=== PATIENT | male | born 1995 | race Caucasian/White ===

== ENCOUNTER 2018-11-16 13:06 | Inpatient (IN) | payer OTHER ==
[2018-11-16 13:46] LABS: Bilirubin Negative (Negative); Blood, Urine Negative (Negative); Clarity CLEAR (Clear); Glucose, Urine (Dipstick) Negative (Negative); Leukocyte Negative (Negative); Nitrite Negative (Negative); Protein, Urine (Dipstick) Negative (Neg-Trace); Specific Gravity, Urine 1.023 (1.002-1.036); Urobilinogen 0.2 mg/dL (0.2-1.0); pH, Urine 5.5 (5.0-9.0)
[2018-11-16 13:59] LABS: Hemoglobin 16.1 g/dL (14.0-18.0); Mean Corpuscular HGB CONC 32.9 g/dL (32.0-36.0); Mean Corpuscular Hemoglobin 27.1 pg (27.0-31.0); Mean Corpuscular Volume 82.1 fL (78.0-98.0); Mean Platelet Volume 8.1 fL (7.4-10.4); Platelet Count 178 thou/uL (130-400); RBC Distribution Width 12.2 % (11.5-14.5); Red Blood Cell (RBC) Count 5.95 mill/uL (4.70-6.10); White Blood Cell (WBC) Count 2.1 thou/uL (4.8-10.8)
[2018-11-16 14:06] LABS: ALT (SGPT) 42 U/L (8-55); AST (SGOT) 39 U/L (5-34); Albumin 4.4 g/dL (3.5-5.0); Alkaline Phosphatase 89 U/L (40-150); Anion Gap 15 mmol/L (10-20); BUN (Urea Nitrogen) 14 mg/dL (8.9-20.6); Bilirubin, Total 0.2 mg/dL (0.2-1.2); Calc. Creatinine Clearance 0 mL/min (70-130); Calcium 9.6 mg/dL (7.8-10.44); Carbon Dioxide 24 mmol/L (22-29); Chloride 103 mmol/L (98-107); Estimated GFR-MDRD 84; Globulin 2.9 g/dL (2.4-3.5); Glucose 93 mg/dL (70-105); Potassium 4.2 mmol/L (3.5-5.1); Protein, Total 7.3 g/dL (6.0-8.3); Sodium 138 mmol/L (136-145)
[2018-11-16] MEDS ORDERED: Ondansetron PF 4 MG/2 ML Vial ONE (14:11)
[2018-11-16 14:14] LABS: Band 1 % (5-11); Eosinophils 1 % (0-10); Lymphocytes 64 % (21-51); MDiff Complete? YES; Monocytes 28 % (0-10); Neutrophil 1 % (42-75); Platelet Morphology Comment Appears Adequate; Reactive Lymphocytes 5 % (0-10)
[2018-11-16] MEDS ORDERED: Cefepime 2 GM VIAL ONE (14:31)
[2018-11-16] MEDS ORDERED: Ondansetron ODT 4 MG TAB SL PRN (18:00)
[2018-11-16] MEDS ORDERED: Ondansetron PF 4 MG/2 ML Vial IVP PRN (18:00)
[2018-11-16] MEDS ORDERED: Acetaminophen 325 MG TAB PO PRN (18:00)
[2018-11-16] MEDS: Sodium Chloride 0.9% 1,000 ML IV SCH (20:21)
[2018-11-16] MEDS: Cefepime 1 GM in Sodium Chloride 0.9% 100 ML IVPB SCH (20:30)
[2018-11-16 21:28] VITALS: BMI 35.6
--- NOTE | 2018-11-17 01:23 | HP ---
PRIMARY CARE PHYSICIAN: Dr. Liam Crews. CHIEF COMPLAINT: Fever. 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 Of note, he had a sinus infection about 1-2 weeks ago and was treated at his primary care office and was started on Augmentin for 7 days. He continued to have fevers and feeling warm. The last couple of days, he continued to have a cough, but his congestion and upper respiratory symptoms have resolved. I presented to Urgent Care, had a temperature over 101, was sent to the emergency department for further evaluation. He was found to have a low white blood cell count to 2100 when his last white blood cell count 1 month ago with his campground cleaning attendant was over 6000. The patient states he does feel some fatigue, but denies headache. Denies rash. Denies visual or hearing changes. Denies neck pain. He has noticed some swelling in his right neck. He was started on antibiotics in the emergency department broad-spectrum including vancomycin and cefepime for a neutropenic fever. He is now being admitted for further evaluation and treatment. Of note, he has had significant workup for his CVID in [place] where his campground cleaning attendant is. He initially had a lung biopsy in [place] in March of 2018. The nodules were benign and felt to be lymphoid tissue. 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 He has been relatively stable since starting on subcutaneous IVIG at home by his campground cleaning attendant in [place]. He has had other lymphoid tumors excised from his neck and groin with no signs of malignancy, but again the lymphoid aggregate tissue. PAST MEDICAL HISTORY: CVID, recent sinus infection. MEDICATIONS: Include subcutaneus IVIG. ALLERGIES: NONE. PAST SURGICAL HISTORY: Lung biopsy, multiple lymph node excisions. SOCIAL HISTORY: He lives at home with his family. He has graduated from [employer] in [employer], looking for a job at this time. Denies smoking. Denies alcohol use at this time, but has in the past. No other drug use. Denies IV drugs. REVIEW OF SYSTEMS: As per the history of present illness. He denies any weakness or seizures. He does admit to recent upper respiratory infection, treated as a sinus infection 1-2 weeks ago. Minimal headache. No visual or hearing changes. CARDIAC: Denies chest pain, shortness of breath or palpitations. PULMONARY: Denies cough, hemoptysis. GI: Denies nausea, vomiting, abdominal pain, melena, hematochezia. : Denies dysuria, hematuria. NEUROLOGIC: Denies weakness, seizure or syncope. MUSCULOSKELETAL: Denies joint pains. GENERAL: Admits to some fatigue over the past week. PHYSICAL EXAMINATION: VITAL SIGNS: Temperature 100.2, pulse of 101, respirations 18, blood pressure 103/66, pulse ox 98% on room air. GENERAL: He is awake and alert. No acute distress. Speech is clear. Mucosa is moist. Throat is clear. No redness. NECK: Supple. He does have anterior cervical adenopathy. HEART: Regular rate and rhythm. LUNGS: Clear throughout. ABDOMEN: Soft, nontender, nondistended. No hepatosplenomegaly. EXTREMITIES: No clubbing, cyanosis, or edema. 2+ peripheral pulses bilaterally. LYMPHATICS: Again, cervical lymphadenopathy, no axillary or no inguinal adenopathy found. LABORATORY DATA: White blood cell count 2100, hemoglobin and hematocrit 16.1 and 48.9, and platelets of 178, 64% lymphocytes, 1% neutrophils, 28% monocytes. Sodium 138, potassium 4.2, chloride 103, CO2 of 24, BUN and creatinine 14 and 1.1 with a GFR of 84, serum glucose of 93, AST and ALT of 39 and 42. Urinalysis was negative. Chest x-ray showed no active disease. ASSESSMENT/PLAN: 1. This is a 23-year-old gentleman with common variable immunodeficiency syndrome, receiving IVIG, now with neutropenic fever. I agree with continuing broad-spectrum antibiotics with Maxipime and vancomycin. We will get MRI of his neck and chest due to lymphadenopathy and history of lymphoid aggregates in his neck, chest, and inguinal area. I will consult Hematology Oncology for consideration of treatment with monoclonal antibodies for his history of thrombocytopenia, now his neutropenia. 2. We will consult Infectious Disease also while we were waiting on blood and urine cultures due to the fever. Lumbar puncture was not successful in the emergency department, but he has no meningeal signs at this time. Job ID: [id number]
[2018-11-17] MEDS: Sodium Chloride 0.9% 1,000 ML IV SCH (02:02)
[2018-11-17 04:19] LABS: ALT (SGPT) 34 U/L (8-55); AST (SGOT) 26 U/L (5-34); Albumin 3.9 g/dL (3.5-5.0); Alkaline Phosphatase 80 U/L (40-150); Anion Gap 15 mmol/L (10-20); BUN (Urea Nitrogen) 13 mg/dL (8.9-20.6); Bilirubin, Total 0.3 mg/dL (0.2-1.2); Calc. Creatinine Clearance 168 mL/min (70-130); Calcium 8.9 mg/dL (7.8-10.44); Carbon Dioxide 21 mmol/L (22-29); Chloride 104 mmol/L (98-107); Estimated GFR-MDRD Greater than 90; Globulin 2.6 g/dL (2.4-3.5); Glucose 150 mg/dL (70-105); Potassium 3.4 mmol/L (3.5-5.1); Protein, Total 6.5 g/dL (6.0-8.3); Sodium 137 mmol/L (136-145)
[2018-11-17 05:13] LABS: Band 2 % (5-11); Eosinophils 4 % (0-10); Hemoglobin 14.1 g/dL (14.0-18.0); Lymphocytes 61 % (21-51); MDiff Complete? YES; Mean Corpuscular HGB CONC 32.2 g/dL (32.0-36.0); Mean Corpuscular Hemoglobin 26.8 pg (27.0-31.0); Mean Corpuscular Volume 83.1 fL (78.0-98.0); Mean Platelet Volume 7.9 fL (7.4-10.4); Monocytes 26 % (0-10); Neutrophil 2 % (42-75); Platelet Count 190 thou/uL (130-400); Platelet Morphology Comment Appears Adequate; RBC Distribution Width 12.2 % (11.5-14.5); Reactive Lymphocytes 5 % (0-10); Red Blood Cell (RBC) Count 5.25 mill/uL (4.70-6.10); White Blood Cell (WBC) Count 2.4 thou/uL (4.8-10.8)
[2018-11-17] MEDS: Cefepime 1 GM in Sodium Chloride 0.9% 100 ML IVPB SCH ×2 (10:46→20:02)
--- NOTE | 2018-11-17 11:33 | PRG ---
DATE OF SERVICE: 11/17/2018 PRIMARY CARE PHYSICIAN: Dr. Liam Crews. SUBJECTIVE: The patient is feeling significantly better. States that his energy has improved. He denies fatigue. Denies fevers or chills. No headache, nausea , or vomiting. He feels like the swelling in his neck may have improved somewhat. Appetite is good. He is hoping to go home soon. Reports reviewed from his past CT, an MRI, and lab work done with his greens planter in [place]. He and his mother declining further workup here and not wanting to do the scans here, but followup with his primary in [place] to do any further scans. At this point, they understand the risks and do not want to proceed with that, understand the importance of staying on this antibiotics due to his recent neutropenic fever. OBJECTIVE: VITAL SIGNS: Temperature 98.6, T-max of 99.8, pulse of 95, respirations 18, blood pressure 110/69, and pulse ox is 99% on room air. GENERAL: He is awake and alert, in no acute distress. SKIN: No rash. HEENT: Mucosa is moist. Throat is clear. NECK: Supple. Continues to have a palpable anterior cervical lymphadenopathy. No tenderness. HEART: Regular rate and rhythm. LUNGS: Clear bilaterally. ABDOMEN: Soft. EXTREMITIES: No edema. LABORATORY DATA: White blood cell count 2400, hemoglobin and hematocrit 14.1 and 43.7, platelets of 190, neutrophils 2%, bands 2%, lymphocytes 61%, and monocytes 26%. Sodium 137, potassium 3.4, chloride 104, CO2 of 21, BUN and creatinine 13 and 1.0. Lactic acid yesterday was 1.2. ASSESSMENT AND PLAN: This is a 23-year-old gentleman with a diagnosis of common variable immunodeficiency, admitted with neutropenic fever. 1. Neutropenia with recent history of thrombocytopenia. He is now afebrile on day 2 of cefepime and vancomycin for antibiotics. Awaiting final blood cultures. They have been negative for 24 hours. We will continue plan. He and his home greens planter have been considering treatment with monoclonal antibody therapy. I discussed with Infectious disease about treatment options. 2. Lymphadenopathy. The patient and mom were declining further workup at this point, but want to do it with their primary greens planter in [place]. We will cancel scans at this point with close followup. I reviewed his recent scans from [place]. He and mother are aware of risks of declining further work up with this current illness. If cultures remain negative for 48 hours, we will discharge home on broad-spectrum antibiotics with followup with greens planter in [place]. Job ID: [id number] KELLY
[2018-11-17] MEDS ORDERED: Lidocaine 4% Topical Sol 50 ML BOT TOP PRN (11:38)
[2018-11-17] MEDS ORDERED: diphenhydrAMINE 25 MG CAP PO PRN (11:39)
[2018-11-17] MEDS ORDERED: IMMUNE GLOBULIN IV SCH (11:45)
[2018-11-17] MEDS ORDERED: Vancomycin HCl 1.25 GM in Sodium Chloride 0.9% 250 ML 250 ML IVPB SCH (14:00)
[2018-11-17] MEDS: Acetaminophen 325 MG TAB PO PRN (14:53)
--- NOTE | 2018-11-17 22:07 | CON ---
DATE OF CONSULTATION: REASON FOR CONSULTATION: Neutropenia. HISTORY OF PRESENT ILLNESS: A 23-year-old who was recently diagnosed with common variable immune deficiency as well as ITP and was treated with corticosteroids and has had two infusions of immunoglobulin over the past month and he came here to visit friends and just graduated from [employer]. He was planning to go back to [place], but then got ill with upper respiratory tract infection, was prescribed 10 days of Augmentin, which he finished and then 3 days later developed general malaise with fever and was admitted with neutropenia. He has been receiving broad- spectrum coverage and has felt improvement thus far. No headaches, visual symptoms, sore throat, odynophagia, dysphagia. No cough or sputum production. No chest pain, no back pain, no abdominal pain or diarrhea. No genitourinary symptoms. No joint symptoms. No neurological symptoms. PAST MEDICAL HISTORY: Recently diagnosed CVID and ITP, treated with corticosteroids with improvement and sinusitis. MEDICATIONS: Finished a course of corticosteroids and has received thus far 2 courses of IV immunoglobulin. ALLERGIES: NONE DESCRIBED. PAST SURGICAL HISTORY: Lung biopsy with multiple lymph node excisions. His lung biopsy pathology apparently demonstrated lymphocytic infiltrates. SOCIAL HISTORY: Graduated from [employer] and a looking for a job, never smoker. No alcoholic beverage use in the current time. Did drink occasionally in the past. No other drug use. FAMILY HISTORY: Noncontributory. PHYSICAL EXAMINATION: VITAL SIGNS: T-max 99.8. SKIN: Normal. There is no lymphadenopathy. Ocular movements conjugate. Oral cavity normal except for gingivitis. His teeth are in good shape. NECK: Supple, no jugular vein distention, no carotid bruits. LUNGS: Symmetric clear breath sounds. CARDIAC: S1, S2 regular rate. No murmurs. No S3 or S4. ABDOMEN: Soft. No ascites or organomegaly. No bladder distention. No tenderness, no joint inflammatory activity. NEUROLOGIC: Nonfocal. No edema. Cognitive function appears to be intact. LABORATORY DATA: Total neutrophil count is about 40 to 50, 2% percent neutrophils, 61% lymphocytes, hemoglobin 14, platelets 190. Sodium 138, creatinine 1.1, AST 39, ALT 42, albumin is 4.4. Urinalysis normal. Two sets of blood cultures and urine culture thus far negative. Chest x-ray without any infiltrates. 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 DISCUSSION: Autoimmune neutropenia in CVID is rare and is somewhat difficult to manage, usually requires corticosteroids. Splenectomy is not recommended for CVID, because of the increase in rates of infection. If he stays afebrile, would recommend discharge planning on oral levofloxacin, but I would contact his MD in [place] before transferring him to make sure that he has a followup visit this week to implement treatment plan for his neutropenia associated with CVID. If he were to continue having fevers, then we will have to add antifungal therapy to his regimen. He does not have any port, so just cefepime by itself should be enough to manage it for the time being. Job ID: [id number] MTDD
[2018-11-18 04:37] LABS: ALT (SGPT) 31 U/L (8-55); AST (SGOT) 22 U/L (5-34); Albumin 3.9 g/dL (3.5-5.0); Alkaline Phosphatase 83 U/L (40-150); Anion Gap 11 mmol/L (10-20); BUN (Urea Nitrogen) 14 mg/dL (8.9-20.6); Bilirubin, Total 0.2 mg/dL (0.2-1.2); Calc. Creatinine Clearance 178 mL/min (70-130); Calcium 9.2 mg/dL (7.8-10.44); Carbon Dioxide 27 mmol/L (22-29); Chloride 105 mmol/L (98-107); Estimated GFR-MDRD Greater than 90; Globulin 2.5 g/dL (2.4-3.5); Glucose 106 mg/dL (70-105); Potassium 3.8 mmol/L (3.5-5.1); Protein, Total 6.4 g/dL (6.0-8.3); Sodium 139 mmol/L (136-145)
[2018-11-18 05:10] LABS: Hemoglobin 14.6 g/dL (14.0-18.0); Mean Corpuscular HGB CONC 31.9 g/dL (32.0-36.0); Mean Corpuscular Hemoglobin 26.5 pg (27.0-31.0); Mean Corpuscular Volume 83.1 fL (78.0-98.0); Mean Platelet Volume 7.8 fL (7.4-10.4); Platelet Count 208 thou/uL (130-400); RBC Distribution Width 12.2 % (11.5-14.5); Red Blood Cell (RBC) Count 5.51 mill/uL (4.70-6.10); White Blood Cell (WBC) Count 2.4 thou/uL (4.8-10.8)
[2018-11-18 05:11] LABS: Eosinophils 6 % (0-10); Lymphocytes 65 % (21-51); MDiff Complete? YES; Monocytes 23 % (0-10); Neutrophil 1 % (42-75); Reactive Lymphocytes 5 % (0-10)
[2018-11-18] MEDS: Cefepime 1 GM in Sodium Chloride 0.9% 100 ML IVPB SCH ×2 (09:38→20:12)
[2018-11-18] MEDS: Dexamethasone Sod Phosphate 20 MG in Sodium Chloride 0.9% 50 ML IVPB SCH ×3 (11:42→23:44)
--- NOTE | 2018-11-18 12:43 | PRG ---
DATE OF SERVICE: 11/18/2018 HISTORY OF PRESENT ILLNESS: The patient states he feels fine, although he does have some bleeding around his gums when he brushes his teeth. He has mild congestion. Not much cough reported. Had not had any fevers since his admission. The patient did give me his associate application developer/oncologist's phone number, Dr. Alberto, whose cell number is [phone]. I spoke with Dr. Alberto regarding the patient's care, who feels it is likely to be medication-induced neutropenia following Augmentin. The patient states he has had an episode of neutropenia prior following clindamycin, responded well to the steroids. Dr. Alberto was okay with mild steroid burst regarding the fact that the patient had neutropenia on lab work just prior to being placed on Augmentin the week after with neutrophil total count of 475, then approximately in the 200s on admission now. He feels the patient would potentially benefit from a 2 to 3 days of Neupogen or Neulasta if available. Consulting Hematology/Oncology to see if they agree and are able to facilitate the patient getting those medications. Microbiology continues to be negative today. The patient verbalized understanding regarding plan from infectious disease standpoint of transition to Levaquin for short course, and if any fevers, consideration of antifungals. The patient states he would feel much more comfortable if his neutrophils were over 500 prior to discharge. I think this is reasonable, especially given his immunodeficiency at baseline even when not suffering from medication-induced neutropenia on top of it. We will at least initiate steroids and Levaquin prior to discharge, follow up on cell count in the morning, and Hematology/Oncology recommendations by his personal associate application developer in [place] for Neupogen. PHYSICAL EXAMINATION: VITAL SIGNS: Temperature of 98.4, pulse of 86, respiratory rate 18, oxygen saturation 98% on room air, blood pressure 127/81. GENERAL: The patient is alert and oriented, in no acute distress. HEENT: Head is normocephalic and atraumatic. Extraocular movements are intact. Sclerae are white. Gums, no overt bleeding currently. No signs of thrush overtly on tongue. LUNGS: Clear to auscultation bilaterally. No rubs or wheezes. HEART: Regular rate and rhythm. No murmurs are auscultated. ABDOMEN: Soft and nontender. Positive bowel sounds throughout. EXTREMITIES: Lower extremities without cyanosis or edema. LABORATORY DATA: White blood cell count 2.4 at 1% neutrophils, hemoglobin 14.6 , and platelet count of 208. Creatinine of 0.95 and potassium 3.8. ASSESSMENT AND PLAN: 1. The patient with neutropenic fever, likely in addition to medication-induced neutropenia. 2. Common variable immunodeficiency, continuing the patient's home IVIG as above. Consult Hematology/Oncology for consideration of Neupogen. Continuing initiation Levaquin and dexamethasone for potential transition home on orals with bridging medication inpatient, following up on cell counts in the morning. If any fevers , we will execute antifungals as per Infectious Disease recommendations. Job ID: [id number] [facility]
[2018-11-18] MEDS ORDERED: Sodium Chloride 0.9% (PF) 10 ML VIAL FS PRN (16:22)
[2018-11-18] MEDS: Acetaminophen 325 MG TAB PO PRN ×2 (18:08→23:50)
--- NOTE | 2018-11-18 21:08 | CON ---
DATE OF CONSULTATION: REASON FOR CONSULT: Neutropenia. HISTORY OF PRESENT ILLNESS: Mr. Gonzalez is a pleasant 23-year-old gentleman who was diagnosed approximately one month ago with common variable immunodeficiency syndrome. He presented to the emergency room on November 16 with a fever of 101. He had recently had a sinus infection and was treated with Augmentin for 7 days. His fever returned. He sought treatment in the ED. His lab showed a white count of 2.1 with 1% neutrophils, 1% bands and 64% lymphocytes. He had 28% monocytes. His hemoglobin was 16.1 and platelet count was 178,000. He was diagnosed with a CVID in [place] approximately 1 month ago. He had a lung biopsy in March of 2018 with intermittent fever since that time. His nodules were benign. He was eventually diagnosed with CVID approximately 1 month ago. He has taken 4 doses of weekly subcutaneous IVIG. He had ITP after his 1st round of antibiotics several weeks ago that were responsive to steroids. He received 4 doses of dexamethasone daily and then was given 3 weeks of prednisone. He has been on no steroids for the last [address] Crews was in touch with his marketing finance manager who felt that it was medication induced neutropenia secondary to antibiotics. He recommended a trial of colony-stimulating factors such as Neupogen. The patient has not had a bone marrow in the past and has not been told he has autoimmune neutropenia. PAST MEDICAL HISTORY: 1. Newly diagnosed CVID. 2. Recent ITP, responsive to steroids. 3. Recent URI. PAST SURGICAL HISTORY: Lung biopsy and multiple lymph node excisions. ALLERGIES: NO KNOWN DRUG ALLERGIES. HOME MEDICATIONS: 1. IgG 10 g subcu weekly. 2. Zoloft 50 mg daily. FAMILY HISTORY: No history of CVID. SOCIAL HISTORY: Recent graduate from [employer]. No alcohol, tobacco, or illicit drug use. REVIEW OF SYSTEMS: A 10-point review of systems is negative. PHYSICAL EXAMINATION: VITAL SIGNS: Temperature is 98.9, pulse is 87, respiratory rate 18, BP is 127/81. He is 97% on room air. GENERAL: Well-developed, well-nourished male, in no acute distress. HEENT: Normocephalic, atraumatic. Pupils are equal and reactive to light. NECK: Supple. CV: Regular rate and rhythm. LUNGS: Clear. ABDOMEN: Soft and nontender. Bowel sounds are positive. There is no organomegaly. EXTREMITIES: No clubbing, cyanosis, or edema. SKIN: No rash. HEMATOLOGICAL: No petechiae or purpura. NEUROLOGICAL: Nonfocal. ASSESSMENT: 1. Recently diagnosed common variable immune deficiency, treated with subcutaneous IgG. 2. Episode of idiopathic thrombocytopenic purpura after antibiotic use. 3. Now with neutropenia, possibly medication induced versus autoimmune. DISCUSSION: The patient's fever has resolved and has had no temperature greater than 99.8 since admission. His white count has now stable at 2400. He has been started on steroids for autoimmune neutropenia. Would consider reducing the dose, I will discuss with Dr. Montiel further. We will begin a short trial of Neupogen if it is autoimmune neutropenia. If it is likely to respond, course will be difficult to determine since steroids have been initiated as well. Thank you for this interesting consult. We will follow his hospital course. Job ID: [id number]
[2018-11-19 05:14] LABS: Band 29 % (5-11); Hemoglobin 15.3 g/dL (14.0-18.0); Lymphocytes 8 % (21-51); MDiff Complete? YES; Mean Corpuscular HGB CONC 32.5 g/dL (32.0-36.0); Mean Corpuscular Hemoglobin 26.8 pg (27.0-31.0); Mean Corpuscular Volume 82.3 fL (78.0-98.0); Mean Platelet Volume 7.9 fL (7.4-10.4); Metamyelocyte 7 % (0-0); Monocytes 6 % (0-10); Myelocyte 1 % (0-0); Neutrophil 49 % (42-75); Platelet Count 278 thou/uL (130-400); Red Blood Cell (RBC) Count 5.72 mill/uL (4.70-6.10); White Blood Cell (WBC) Count 10.7 thou/uL (4.8-10.8)
[2018-11-19] MEDS ORDERED: Dexamethasone 1 MG TAB PO SCH (08:00)
[2018-11-19 08:46] VITALS: BP 129/79; TEMP 97.7
[2018-11-19] MEDS ORDERED: Pantoprazole 40 MG VIAL IVP SCH (09:00)
--- NOTE | 2018-11-19 10:36 | CON ---
DATE OF CONSULTATION: REASON FOR CONSULTATION: Neutropenia. HISTORY OF PRESENT ILLNESS: Please see nurse practitioner, Dhara Thomas's note for complete consult. In brief, this is a 23-year-old male with recent diagnosis of common variable immunodeficiency syndrome, who presented to the hospital with fever. Within the last 4 to 5 weeks, he has been started on IVIG and has had an episode of ITP after antibiotics, that resolved with steroids. During this admission, he was found to have an ANC as low as 24, and was started on high-dose dexamethasone 20 mg IV q.6 hours and received 1 dose of Neupogen yesterday. His neutrophil counts have recovered and he is currently asymptomatic and has no fevers. Please see previous consult note for full medical history. PHYSICAL EXAMINATION: VITAL SIGNS: Temperature 98.8, pulse 92, saturating 97% on room air, respirations 16, and blood pressure 137/91. Gen: sitting up in bed in NAD; RESP: nonlabored, NEURO: nonfocal; Psych: AAOx3 LABORATORY DATA: White blood cells 10.7, hemoglobin 15.3, platelets 278, and neutrophils 49% with 29% band neutrophils. Sodium 139, potassium 3.8, BUN 14, and creatinine 0.95. ASSESSMENT AND PLAN: A 23-year-old male with common variable immune syndrome on weekly IVIG, presenting to the hospital with fever, which is now resolved along with neutropenia, which is resolved status post high-dose dexamethasone and 1 dose of Neupogen. It is unclear, if his response was to the steroids or the Neupogen. If his neutrophils were autoimmune in nature, the response would most likely be to steroids; however, it was from his antibiotics and Neupogen what have been the thoughts of the rise. The patient does not need any further dosing of Neupogen and should start a steroid taper as determined by Dr. Crews and follow up with him and his physician in [place] as an outpatient. Job ID: [id number] [facility]
--- NOTE | 2018-11-20 01:22 | DIS ---
DATE OF ADMISSION: 11/16/2018 DATE OF DISCHARGE: 11/19/2018 PRIMARY CARE PHYSICIAN: Myself, Dr. Liam Crews. DISCHARGE DIAGNOSES: Resolved neutropenic fever and neutropenia secondary to medication induced and autoimmune. The patient with common variable immunodeficiency. DISCHARGE DIET: Regular. DISCHARGE ACTIVITY: As tolerated. DISCHARGE CONDITION: Good. DISCHARGE MEDICATIONS: 1. Levaquin 500 mg once daily for 7 days. 2. Prednisone 10 mg one tablet p.o. daily for 7 days. 3. IgG 10g/15 mL, 10 g subcu every 7 days. PRESENTING CHIEF COMPLAINT: Neutropenic fever. HISTORY OF PRESENT ILLNESS: The patient was seen in Urgent Care, given Augmentin, diagnosed with neutropenic fever and was presented to emergency department for evaluation, where he was admitted by Dr. Dilan Coon. The patient was seen by Infectious Disease, recommended cefepime for coverage prophylactically. Discontinued Augmentin. Recommending Levaquin on discharge for continued infection control from potential URI and oral infection. The patient did have bleeding gums associated. Has had history of ITP, although his platelets remained over 150,000 throughout the patient's hospital stay. The patient with 1% to 2% neutrophils on 2100 to 2400 total white blood cell count, grossly improved following one dose of Neupogen and high-dose dexamethasone for 24 hours to white blood count of 10.7 and neutrophil percent of 49, as well as platelet count of 278. The patient with no overt signs or symptoms of infection prior to discharge. No further fevers while in hospital. The patient is followed by Hematology Oncology up in [place]. He will be doing short summer job and then spending the rest of the summer up with his mother up in [place]. He may return back down toward this area for work in the fall, just graduated from [employer]. Appreciate consultation from Dr. Montiel with Hematology for giving patient Neupogen. Recommended not to continue any further dosing. Given the fact that patient's white blood cells and neutrophils were undeclining prior to Augmentin, likely element of autoimmune neutropenia layered on top of medication-induced neutropenia, but patient has had history with clindamycin in the past, which responded very well to steroids. As a precaution in the future, the patient may consider low-dose steroids such as 10 mg prednisone for concomitant use with antibiotics, however, did highly recommend the patient that he presents to urgent care PCP depending on his location for robust viral and bacterial swabs prior to frequent use of antibiotics. The patient also is on p.r.n. prednisone 20 mg every other day for any episodes of petechiae occurring and to follow up with his PCP or Hematology Oncology if he is in [place] area for laboratory check regarding history of ITP. He will follow up with me, Dr. Liam Crews in my office on Sunday prior to leaving with recheck of cell counts. Job ID: [id number]
== END 2018-11-19 13:59 | disposition home or self-care (01) | DRG 809 ==
LOC: ERS 13:06 → ONC 15:36
PROVIDERS: ADMIT Family Medicine; ATTEND Family Medicine
PROC: 00JU3ZZ Inspection of Spinal Canal, Percutaneous Approach (ICD-10-PCS; principal; 2018-11-16)
DX: D70.9 Neutropenia, unspecified (principal); D83.9 Common variable immunodeficiency, unspecified; D69.3 Immune thrombocytopenic purpura; R50.81 Fever presenting with conditions classified elsewhere; R59.1 Generalized enlarged lymph nodes; T36.95XA Adverse effect of unspecified systemic antibiotic, initial encounter
CPT/HCPCS: 36415; 80053; 81003; 83605; 85007; 85025; 85027; 87040; 87086; C9113; J0692; J1100; J1447; J1956; J2405; J3370; J3490; J7050; J8540